=== PATIENT | male | born 2000 | race American Indian/Alaskan Native ===

== ENCOUNTER 2020-07-24 17:59 | Emergency (ER) | payer OTHER ==
[2020-07-24] MEDS ORDERED: Acetaminophen 500 MG Tab PO ONE (19:01)
[2020-07-24] MEDS ORDERED: Take Home: Amoxicillin/Clavulanate K 875-125 MG Tab, 2 Tab Pack PO ONE (19:02)
--- NOTE | 2020-07-25 02:21 | EDM.PDOC ---
ED HPI GENERAL MEDICAL PROBLEM - General Chief Complaint: ENT Problem Stated Complaint: CHILLS,SORE THROAT, fever Time Seen by Provider: 07/24/20 18:20 Source of Information: Reports: Patient History Limitations: Reports: No Limitations - History of Present Illness INITIAL COMMENTS - FREE TEXT/NARRATIVE: Pt. presents to ER with complaints of sore throat, fever, and chills. Pt. states that this started several days ago. He states that he has not been taking any tylenol of ibuprofen for fever/discomfort. Denies any cough. No chest congestion. No rhinorrhea. Denies any abdominal discomfort, nausea, vomiting, or diarrhea. No ear pain. Denies any rashes. Location: Reports: Other (sore throat) Quality: Reports: Burning throat Pain Score (Numeric/FACES): 6 - Related Data Allergies Allergy/AdvReac Type Severity Reaction Status Date / Time No Known Allergies Allergy Verified 07/24/20 18:40 Home Meds: Home Meds . [No Known Home Meds] 07/24/20 [History] Past Medical History - Past Health History Medical/Surgical History: Denies Medical/Surgical History - Past Surgical History Other HEENT Surgeries/Procedures: Hx of strep throat in the past. Social & Family History - Tobacco Use Tobacco Use Status *Q: Unknown Ever Used Tobacco ED ROS GENERAL - Review of Systems Review Of Systems: Comprehensive ROS is negative, except as noted in HPI. ED EXAM, GENERAL - Physical Exam Exam: See Below Exam Limited By: No Limitations General Appearance: Alert, WD/WN, No Apparent Distress Eye Exam: Bilateral Eye: EOMI, Normal Fundi, Normal Inspection, PERRL Ears: Normal External Exam, Normal Canal Ear Exam: Bilateral Ear: Auricle Normal, Canal Normal, TM normal Nose: Normal Inspection, No Blood Throat/Mouth: Other (Erythema noted to tonsils, hypopharynx.) Neck: Normal Inspection, Full Range of Motion, Lymphadenopathy (L), Lymphadenopathy (R) Respiratory/Chest: No Respiratory Distress, Normal Breath Sounds, No Accessory Muscle Use, Chest Non-Tender Cardiovascular: Normal Peripheral Pulses, Regular Rate, Rhythm, No Edema, No JVD, No Murmur, No Rub Skin Exam: Warm, Dry, Intact, Normal Color, No Rash Course - Vital Signs Last Recorded V/S: Last Vital Signs Temp 38.8 C H 07/24/20 19:12 Pulse 94 07/24/20 18:20 Resp 16 07/24/20 18:20 BP 118/59 L 07/24/20 18:20 Pulse Ox 97 07/24/20 18:20 - Orders/Labs/Meds Labs: Laboratory Tests 07/24/20 Range/Units 18:32 Group A Strep (PCR) Not detected (NOT DETECT) Meds: Medications Discontinued Medications Generic Name Dose Route Start Last Admin Trade Name James PRN Reason Stop Dose Admin Acetaminophen 1,000 mg 07/24/20 19:01 07/24/20 19:12 Acetaminophen 500 Mg Tab PO 07/24/20 19:02 1,000 mg ONETIME ONE Administration Amoxicillin/Clavulanate Potassium 2 packet 07/24/20 19:02 07/24/20 19:13 Take Home: Amoxicillin/Clavulanate K 875-125 Mg Tab, 2 Tab Pack PO 07/24/20 19:03 2 packet ONETIME ONE Administration Departure - Departure Time of Disposition: 19:20 Disposition: Home, Self-Care 01 Clinical Impression: Pharyngitis - Discharge Information Instructions: Amoxicillin; Clavulanic Acid Tablets, Pharyngitis, Probiotics Referrals: Mellisa Jones MD [Primary Care Provider] - Forms: ED Department Discharge Additional Instructions: Augmentin 875mg 1 tab twice daily for 10 days tylenol 650mg every 4 hours for fever Ibuprofen 200mg 3 tabs every 6 hours for fever/discomfort Drink plenty of fluids Return to ER if not improving Sepsis Event Note (ED) - Evaluation Sepsis Screening Result: Possible Sepsis Risk - Focused Exam Vital Signs: Vital Signs Temp Temp Pulse Resp BP Pulse Ox 07/24/20 19:12 38.8 C H 07/24/20 18:20 38.8 C H 94 16 118/59 L 97 - Problem List Review Problem List Initiated/Reviewed/Updated: Yes - Assessment/Plan Plan: Augmentin 875mg 1 tab twice daily for 10 days tylenol 650mg every 4 hours for fever Ibuprofen 200mg 3 tabs every 6 hours for fever/discomfort Drink plenty of fluids Return to ER if not improving
== END 2020-07-24 19:20 | disposition home or self-care (01) ==
LOC: VM.ED 17:59
DX: J02.9 Acute pharyngitis, unspecified (principal)
CPT/HCPCS: 87651-QW; 99283; A9270-GY

== ENCOUNTER 2021-09-09 22:29 | Emergency (ER) | payer OTHER | END 2021-09-09 23:00 | disposition home or self-care (01) | LOC: VM.ED 22:29 | DX: T51.1X1A Toxic effect of methanol, accidental (unintentional), initial encounter (principal) | CPT/HCPCS: 99282; 99283 ==